=== PATIENT | male | born 1985 | race Two or more races ===

== ENCOUNTER 2020-05-11 12:01 | Emergency (ER) | payer OTHER ==
[~2020-05-11] VITALS: Ht 188 cm; Wt 154.2 kg
[2020-05-11] MEDS ORDERED: ALPRAZOLAM2 MG PO (12:27)
[2020-05-11] MEDS ORDERED: LOSARTAN-HCTZ1 EAC1 PO (12:27)
[2020-05-11] MEDS ORDERED: ALPRAZOLAM1 MG PO (12:27)
[2020-05-11] MEDS ORDERED: METOPROLOL SUC100 MG PO (12:28)
== END 2020-05-11 14:41 | disposition home or self-care (01) ==
LOC: ER 12:01
DX: S93.491A Sprain of other ligament of right ankle, initial encounter (principal); I16.1 Hypertensive emergency; I10 Essential (primary) hypertension; X50.0XXA Overexertion from strenuous movement or load, initial encounter; Y93.02 Activity, running; Y92.814 Boat as the place of occurrence of the external cause; Y99.8 Other external cause status